=== PATIENT | male | born 2000 | race Caucasian/White ===

== ENCOUNTER 2021-09-03 10:52 | Emergency (ER) | payer BC ==
[~2021-09-03] VITALS: Ht 182.9 cm; Wt 90.9 kg
[2021-09-03] MEDS ORDERED: ALLEGRA D 12 HO1 TER PO (11:13)
[2021-09-03 12:11] LABS: BASO # 0.01 K/mm3 (0.02-0.10); EOS # 0.01 K/mm3 (0.04-0.40); EOS % 0.2 % (0.0-4.0); HEMATOCRIT 46.1 % (42.0-52.0); HEMOGLOBIN 15.1 g/dL (13.5-18.0); LYMPH# 1.18 K/mm3 (1.50-4.00); MEAN CELL VOLUME 90 fl (78-100); MEAN CORPUSCULAR HEMOGLOBIN 29 pg (27-31); MEAN CORPUSCULAR HGB CONC 33 g/dL (33-37); MEAN PLATELET VOLUME 10.5 fl (7.4-10.4); PLATELET COUNT 155 K/mm3 (130-400); RED BLOOD COUNT 5.15 M/mm3 (4.20-5.60); RED CELL DISTRIBUTION WIDTH 13.1 % (11.5-14.5); WHITE BLOOD COUNT 6.1 K/mm3 (4.8-10.8)
[2021-09-03 14:05] VITALS: BP 128/83
== END 2021-09-03 14:06 | disposition home or self-care (01) ==
LOC: ED 10:52
PROVIDERS: Family Medicine
DX: U07.1 COVID-19 (principal); Z73.0 Burn-out